=== PATIENT | male | born 1975 | race Caucasian/White ===

== ENCOUNTER 2021-09-22 17:07 | Emergency (ER) | payer OTHER, SELFPAY ==
[2021-09-22 17:07] VITALS: BP 136/90; PULSE 86; RESP 22; TEMP 36.3; O2SAT 97
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
[2021-09-22 18:10] LABS: Abs Immature Grans 0.06 10^3/uL (0.0-0.06); Absolute Eosinophil Count 0.07 10^3/uL (0.0-0.7); Absolute Lymphocyte Count 2.21 10^3/uL (1.2-3.4); Absolute Monocyte Count 0.91 10^3/uL (0.1-0.8); Absolute Neutrophil Count 9.01 10^3/uL (1.2-6.7); Basophils % 0.6; Eosinophils % 0.6; HCT 51.4 % (40.0-50.0); HGB 17.4 g/dL (13.5-17.5); Immature Grans % 0.5; Lymphocytes % 17.9; MCH 31.2 pg (27.0-33.0); MCHC 33.9 % (32.0-36.0); MCV 92 fL (80-95); MPV 8.4 fL (8.0-11.0); Monocytes % 7.4; Platelet Count 307 10^3/uL (130-400); RBC 5.58 10^6/uL (4.36-5.78); RDW 12.8 % (11.8-14.1); RDW-SD 43.8 fL; WBC 12.34 10^3/uL (4.4-10.8)
[2021-09-22 18:13] LABS: Absolute Basophil Count 0.07 10^3/uL (0.0-0.2)
[2021-09-22] MEDS: Omnipaque 350 MG/ML 100 ML BTL IJ (18:20)
[2021-09-22] MEDS: Normal Saline 1,000 ML 1000 ML IV (18:31)
[2021-09-22 18:32] LABS: ALT 30 U/L (16-63); AST 30 U/L (15-37); Albumin 4.9 g/dL (3.4-5.0); Alkaline Phosphatase 69 U/L (46-116); Anion Gap 12.9 mmol/L (3-11); BUN 12 mg/dL (7-18); Bilirubin, Total 0.3 mg/dL (0.2-1.0); CO2 25.1 mmol/L (21.0-32.0); Calcium 9.2 mg/dL (8.5-10.1); Chloride 105 mmol/L (98-107); Glucose 71 mg/dL (74-106); Potassium 3.8 mmol/L (3.5-5.1); Sodium 143 mmol/L (136-145); Total Protein 9.1 g/dL (6.4-8.2)
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
[2021-09-22 18:51] VITALS: BP 148/77; PULSE 84; RESP 16; O2SAT 97
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
[2021-09-22 19:21] LABS: Bilirubin Negative (Negative); Blood Trace-intact (Negative); Clarity Clear (Clear); Glucose Negative (Negative); Ketones Negative (Negative); Leukocyte Esterase Negative (Negative); Nitrite Negative (Negative); Specific Gravity 1.015 (1.005-1.025); Urobilinogen 0.2 EU/dL (Up TO 0.2); pH 5.5 (5-8)
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
[2021-09-22 19:33] LABS: Bacteria Negative HPF (Negative); Crystals Negative HPF (Negative); Epithelial Cells Negative HPF (Negative); Mucus Negative (Negative); RBC 0-2 HPF (0-2); WBC 0-2 HPF (0-5)
[2021-09-22 19:34] LABS: C & S Indicated? No; Casts 5-10 Hyaline LPF (Negative)
[2021-09-22 20:05] VITALS: BP 98/45; PULSE 84; RESP 16; TEMP 36.6; O2SAT 95
== END 2021-09-22 20:06 | disposition home or self-care (01) ==
PROVIDERS: Emergency Provider Nurse Practitioner Family
DX: S80.812A Abrasion, left lower leg, initial encounter (principal); S80.211A Abrasion, right knee, initial encounter; S90.811A Abrasion, right foot, initial encounter; T07.XXXA Unspecified multiple injuries, initial encounter; G89.11 Acute pain due to trauma; M25.511 Pain in right shoulder; F10.129 Alcohol abuse with intoxication, unspecified; R31.9 Hematuria, unspecified; D72.829 Elevated white blood cell count, unspecified; F17.200 Nicotine dependence, unspecified, uncomplicated; Z23 Encounter for immunization; V86.99XA Unspecified occupant of other special all-terrain or other off-road motor vehicle injured in nontraffic accident, initial encounter; Y90.8 Blood alcohol level of 240 mg/100 ml or more
CPT/HCPCS: 36415; 74177; 80053; 90471; 96360; 99285; 70450; 71260; 72125; 73590; 73610; 80320; 81003; 81015; 83735; 85025; 99284; J3490